=== PATIENT | male | born 1955 | race Caucasian/White ===

== ENCOUNTER 2020-03-05 07:08 | Day surgery (SDC) | payer OTHER ==
[2020-03-03 13:24] VITALS: BMI 25.0
[2020-03-05] MEDS ORDERED: LIDOCAINE HCL/PF 2% SDV 5ML VIAL ONE (07:17)
[2020-03-05] MEDS ORDERED: PROPOFOL 20 ML ONE ×2 (07:17)
[2020-03-05 08:47] VITALS: TEMP 98
[2020-03-05 09:05] VITALS: BP 108/71; PULSE 61
== END 2020-03-05 09:40 | disposition home or self-care (01) ==
LOC: FASU-ENDO 07:08
PROVIDERS: ATTEND Internal Medicine Gastroenterology
PROC: 0DJD8ZZ Inspection of Lower Intestinal Tract, Via Natural or Artificial Opening Endoscopic (ICD-10-PCS; principal; 2020-03-05 08:20)
DX: Z12.11 Encounter for screening for malignant neoplasm of colon (principal)

== ENCOUNTER 2021-08-10 10:58 | Emergency (ER) | payer OTHER ==
[2021-08-10 11:11] VITALS: BP 148/87; PULSE 66; TEMP 97.4; BMI 26.5
[2021-08-10] MEDS ORDERED: DIPHTH,PERTUSS(ACELL),TET 0.5 ML DISP.SYRIN IM ONE ×2 (11:27→11:31)
[2021-08-10] MEDS ORDERED: NAPROXEN 500 MG TABLET PO ONE (11:27)
[2021-08-10] MEDS ORDERED: NAPROXEN 500 MG TABLET ONE (11:30)
== END 2021-08-10 12:48 | disposition home or self-care (01) ==
LOC: FER 10:58
PROC: 3E0234Z Introduction of Serum, Toxoid and Vaccine into Muscle, Percutaneous Approach (ICD-10-PCS; principal; 2021-08-10)
DX: S59.901A Unspecified injury of right elbow, initial encounter (principal); W01.0XXA Fall on same level from slipping, tripping and stumbling without subsequent striking against object, initial encounter
CPT/HCPCS: 73070-TC-RT-FY; 90715; 99283-25